=== PATIENT | female | born 1975 | race Caucasian/White ===

== ENCOUNTER 2023-02-22 04:18 | Day surgery (SDC) | payer OTHER ==
[2023-02-20 15:32] VITALS: BMI 25.3
[2023-02-22] MEDS ORDERED: oxyCODONE HCL 5 MG TABLET PO PRN (09:32)
[2023-02-22] MEDS ORDERED: ONDANSETRON 4 MG/2 ML VIAL IVPUSH PRN (09:32)
[2023-02-22] MEDS ORDERED: ACETAMINOPHEN 325 MG TABLET (FP) PO PRN (09:32)
[2023-02-22] MEDS ORDERED: LACTATED RINGERS SOLUTION 1,000 ML IV SCH (09:45)
[2023-02-22] MEDS ORDERED: PROPOFOL 20 ML ONE (09:52)
[2023-02-22] MEDS ORDERED: MIDAZOLAM HCL 2 MG/2 ML SINGLE DOSE VIAL ONE (09:52)
[2023-02-22] MEDS ORDERED: ONDANSETRON 4 MG/2 ML VIAL ONE (10:05)
[2023-02-22] MEDS ORDERED: DEXAMETHASONE SOD PHOSPHATE 4 MG/1 ML VIAL ONE (10:05)
[2023-02-22 12:42] VITALS: RESP 20; TEMP 97.8
[2023-02-22 15:27] VITALS: BP 115/67; PULSE 56
== END 2023-02-22 14:20 | disposition home or self-care (01) ==
LOC: JASU-SURG 04:18
PROVIDERS: ATTEND Obstetrics & Gynecology
PROC: 0UDB8ZX Extraction of Endometrium, Via Natural or Artificial Opening Endoscopic, Diagnostic (ICD-10-PCS; principal; 2023-02-22 10:00)
DX: D25.9 Leiomyoma of uterus, unspecified (principal); N93.8 Other specified abnormal uterine and vaginal bleeding
CPT/HCPCS: 81025; 88305-TC; 94760

== ENCOUNTER 2023-08-24 17:57 | Emergency (ER) | payer OTHER ==
[2023-08-24 18:18] VITALS: BMI 25.7
[2023-08-24 20:10] LABS: BASO % 0.5 % (0-2.0); EOS % 0.9 % (0-4.5); HEMATOCRIT 40.7 % (32.4-45.2); LYMPH % 20.5 % (8-40); MCHC 34.5 g/dl (32.0-36.0); MEAN CELL VOLUME 89.8 fl (80-96); MONO % 7.3 % (3.8-10.2); NEUT % 70.8 % (42.8-82.8); PLATELET COUNT 273 10^3/uL (134-434); RBC 4.53 M/mm3 (3.60-5.2); RDW 14.2 % (11.6-15.6)
[2023-08-24 20:50] VITALS: BP 173/110; PULSE 76; RESP 18; TEMP 99.4
[2023-08-24 20:57] LABS: POTASSIUM 3.6 mmol/L (3.5-5.1)
[2023-08-24 20:59] LABS: CALCIUM 9.2 mg/dL (8.5-10.1); MAGNESIUM 2.1 mg/dL (1.8-2.4)
[2023-08-24 21:01] LABS: CREATININE 0.8 mg/dL (0.55-1.3)
[2023-08-24 21:04] LABS: BILIRUBIN,TOTAL 0.2 mg/dL (0.2-1)
[2023-08-24 21:39] LABS: EPI CELLS 10 /uL (0-25.1); HYALINE CASTS 0 /uL (0-3.1); URINE APPEARANCE CLEAR; URINE BACTERIA 109 /uL (0-1359); URINE BILIRUBIN NEGATIVE (NEGATIVE); URINE COLOR YELLOW; URINE GLUCOSE (UA) NEGATIVE (NEGATIVE); URINE KETONE NEGATIVE (NEGATIVE); URINE LEUK ESTERASE NEGATIVE (NEGATIVE); URINE NITRITE NEGATIVE (NEGATIVE); URINE PROTEIN NEGATIVE (NEGATIVE); URINE RBC 72 /uL (0-23.9); URINE WBC 4 /uL (0-25.8)
== END 2023-08-24 22:08 | disposition home or self-care (01) ==
LOC: JER 17:57
DX: R51.9 Headache, unspecified (principal); R07.89 Other chest pain; I10 Essential (primary) hypertension; R68.84 Jaw pain; R05.9 Cough, unspecified
CPT/HCPCS: 36415; 70450-TC; 71046-TC-FY; 80053; 81003; 83735; 84484; 85025; 93005; 93010; 99285-25

== ENCOUNTER 2024-04-10 19:17 | Emergency (ER) | payer OTHER ==
[2024-04-10 19:23] VITALS: BP 182/99; TEMP 97.7; BMI 25.3
[2024-04-10 20:54] LABS: POTASSIUM 3.7 mmol/L (3.5-5.1)
[2024-04-10 20:56] LABS: CALCIUM 8.9 mg/dL (8.5-10.1)
[2024-04-10 20:57] LABS: BASO % 0.5 % (0-2.0); EOS % 2.6 % (0-4.5); HEMATOCRIT 35.9 % (32.4-45.2); HEMOGLOBIN 12.3 GM/dL (10.7-15.3); LYMPH % 35.1 % (8-40); MCH 31.6 pg (25.7-33.7); MCHC 34.3 g/dl (32.0-36.0); MEAN PLT VOLUME 9.5 fl (7.5-11.1); MONO % 5.9 % (3.8-10.2); NEUT % 55.9 % (42.8-82.8); PLATELET COUNT 213 10^3/uL (134-434); RDW 15.1 % (11.6-15.6); WHITE BLOOD COUNT 6.2 K/mm3 (4.0-10.0)
[2024-04-10 20:58] LABS: ALBUMIN 3.9 g/dl (3.4-5.0); BLOOD UREA NITROGEN 14.3 mg/dL (7-18)
[2024-04-10 21:01] LABS: CREATININE 0.7 mg/dL (0.55-1.3)
[2024-04-10 21:02] LABS: BILIRUBIN,TOTAL 0.2 mg/dL (0.2-1); TOT PROT 7.4 g/dl (6.4-8.2)
[2024-04-10 22:29] VITALS: PULSE 69; RESP 18
== END 2024-04-11 00:08 | disposition home or self-care (01) ==
LOC: JER 19:17 → JERFT 19:17 → JER 04-11 00:08
DX: R09.A2 Foreign body sensation, throat (principal); R13.10 Dysphagia, unspecified
CPT/HCPCS: 36415; 70491-TC; 80053; 84703; 85025; 99285-25; Q9967